=== PATIENT | female | born 1945 | race Caucasian/White ===

== ENCOUNTER 2018-08-04 06:50 | Day surgery (SDC) | payer MEDICARE ==
[~2018-08-04] VITALS: Ht 160 cm; Wt 55.8 kg
[~2018-08-04 06:50] MED LIST: CARVEDILOL12.5 MG PO; CLONAZEPAM1 MG PO; COREG12.5 MG PO; COZAAR25 MG PO; CYCLOBENZAPRINE10 MG PO; CYMBALTA60 MG PO; FUROSEMIDE40 MG PO; HYDROXYZINE HCL25 MG PO; LIDODERM700 MG TD; LIDODERM700 MG TP; LINZESS145 MCG PO; LYRICA75 MG PO; MACROBID 100 M100 MG PO; MILK OF MA400 MG/5 M PO; MIRTAZAPINE15 MG PO; NALOXONE H0.4 MG/11 INJ; NEOMYCIN-POLY-7.5 ML OTIC; NEURONTIN300 MG PO; NEURONTIN600 MG PO; NITROSTAT0.4 MG SL; NORCO 5-325 TA1 EACH PO; NORCO 7.5-3251 EACH PO; OLANZAPINE10 MG PO; PERCOCET 5-3251 EACH PO; PRAVACHOL20 MG PO; PROMETHAZINE HC25 M1 PO; SOMA350 MG PO; SPIRIVA18 MCG INH; SYMBICORT 80-10.2 GM IH; ZOFRAN ODT8 MG PO
--- NOTE | 2018-08-05 06:38 | OR ---
[facility] [address], [place] [address] Signed DATE OF OPERATION: 08/04/2018 SURGEON: Richard Lopez MD PREOPERATIVE DIAGNOSES: 1. Internal and external hemorrhoids. 2. Father with colon cancer in his 50s. 3. Brother with colon cancer in his 60s. 4. Two sisters with colon cancer. 5. Sororal niece with colon cancer at young age. POSTOPERATIVE DIAGNOSES: 1. A 5 mm polyp at 8 cm. 2. Minimal to moderate internal and external hemorrhoids. PROCEDURE PERFORMED: Colonoscopy with hot biopsy. ESTIMATED BLOOD LOSS: None. INDICATIONS: Karli is a 73-year-old female who has a very strong family history of colon cancer as listed above. She is also known to have internal and external hemorrhoids. Her last colonoscopy was in 2007, and was unremarkable except for the hemorrhoids. In the meantime, she is doing well with her bowel movements. However, she is an ASA class 4. She did see her record systems analyst and her bowling alley refinisher prior to the procedure. She had come into the office with her . I have known them for many years. We had a very long discussion regarding the nature of colonoscopy. She understands there is risk including, but not limited to gas, bloating, crampy abdominal pain, bleeding, perforation, requiring surgery, and missed diagnosis. She understands fully that she is at increased risk. Consequently, we did have an anesthesia provider who help us with increased monitoring sedation with propofol. We also had reviewed the bowel prep in detail. She had expressed understanding and maintained her desire to undergo a followup colonoscopy. PROCEDURE NOTE: Karli was taken into our endoscopy suite and placed in the left lateral decubitus position. She was given IV sedation with propofol per our nurse barrel loader and cleaner. A digital rectal exam was performed and this showed some mild to moderate circumferential external Electronically Signed By: RICHARD LOPEZ MD 08/05/18 0638 PATIENT NAME: KARLI PARRA OPERATIVE REPORT DATE OF : 43 REPORT #: [id number] PHYSICIAN: RICHARD LOPEZ MD PCP: WILIAN MARES MD REPORT IS CONFIDENTIAL AND NOT TO BE RELEASED WITHOUT AUTHORIZATION [facility] [address], [place] [address] Signed hemorrhoids. The adult colonoscope was then introduced and advanced under direct visualization of camera without difficulty. Her prep was actually pretty good. There were just a couple of areas of particulate liquid stool. Most of that was irrigated and suctioned out completely. We had taken pictures throughout for photodocumentation. We were able to pass the scope quite gently. We did not need any additional sedation or abdominal compression. The scope was then slowly withdrawn. We saw no pathology throughout the entire colon. Specifically no diverticulosis. Back in the rectum at 8 cm was a small 5 mm polyp at about 8 cm. It was easily removed with the help of hot biopsy forceps. Upon retroflexion of scope, we could see some very minimal to moderate internal hemorrhoid tissue. The gas was then suctioned out and the colonoscope removed. Karli tolerated the procedure quite well. RECOMMENDATIONS: I will see Karli back in my office in 7 to 10 days to review her results. Richard Lopez MD ALB/MODL /[id number] cc: MD Richard Jones, MD Wilian Mares, MD Nayeli Terrell MD Copies: TEENA HAMILTON MD,RICHARD MARES,NAYELI PICKENS MD, MD ~ Electronically Signed By: RICHARD LOPEZ MD 08/05/18 0638 PATIENT NAME: KARLI PARRA OPERATIVE REPORT DATE OF : 43 REPORT #: [id number] PHYSICIAN: RICHARD LOPEZ MD PCP: WILIAN MARSE MD REPORT IS CONFIDENTIAL AND NOT TO BE RELEASED WITHOUT AUTHORIZATION
== END 2018-08-04 10:26 | disposition home or self-care (01) ==
LOC: DS 06:50 → OPS 06:50
PROVIDERS: Colon & Rectal Surgery
PROC: 0DBP8ZZ Excision of Rectum, Via Natural or Artificial Opening Endoscopic (ICD-10-PCS; principal; 2018-08-04 08:30)
DX: Z12.11 Encounter for screening for malignant neoplasm of colon (principal); D12.8 Benign neoplasm of rectum; K64.8 Other hemorrhoids; K64.4 Residual hemorrhoidal skin tags; J44.9 Chronic obstructive pulmonary disease, unspecified; Z80.0 Family history of malignant neoplasm of digestive organs; Z88.5 Allergy status to narcotic agent; Z88.6 Allergy status to analgesic agent; Z88.8 Allergy status to other drugs, medicaments and biological substances; Z83.71 Family history of colonic polyps; Z79.899 Other long term (current) drug therapy
CPT/HCPCS: 88305; J2250; J2704; J3010; J7120

== ENCOUNTER 2019-04-07 17:15 | Emergency (ER) | payer MEDICARE ==
[~2019-04-07] VITALS: Ht 160 cm; Wt 55.8 kg
--- OUTSIDE RECORDS SUMMARY | 2019-04-07 17:18 | XMS ---
PreManage Notification: SUNDAY PARRA Security Scada Engineer Events No recent Security Events currently on file CRITERIA MET - OLIVIA CARE PROVIDERS [facility] 04/12/2015-Current MIKAEL PHONE: Unknown Other Current PHONE: Unknown Jaswinder has no Care Guidelines for this patient. Hollie VISIT COUNT (12 MO.) Michael Ludwig TOTAL 1 NOTE: Visits indicate total known visits. ED/UCC VISIT TRACKING (12 MO.) 04/07/2019 17:[address] [facility] [place] TYPE: Emergency COMPLAINT: - FALL, ARM/BACK PAIN INPATIENT VISIT TRACKING (12 MO.) No inpatient visits to display in this time frame [email or web address]
== END 2019-04-07 19:23 | disposition home or self-care (01) ==
LOC: ED 17:15
DX: M79.601 Pain in right arm (principal)

== ENCOUNTER 2020-05-11 17:06 | Emergency (ER) | payer MEDICARE ==
[~2020-05-11] VITALS: Ht 160 cm; Wt 55.8 kg
--- OUTSIDE RECORDS SUMMARY | 2020-05-11 17:08 | XMS ---
PreManage Notification: SUNDAY PARRA Security Heel Sander Rubber Events No recent Security Events currently on file [facility] PHONE: [phone] Jaswinder has no Care Guidelines for this patient. Hollie VISIT COUNT (12 MO.) [address] [facility] TOTAL 1 NOTE: Visits indicate total known visits. ED/UCC VISIT TRACKING (12 MO.) 05/11/2020 17:06 [facility] [place] TYPE: Emergency COMPLAINT: - CONFUSION INPATIENT VISIT TRACKING (12 MO.) No inpatient visits to display in this time frame [email or web address]
--- NOTE | 2020-05-12 14:35 | EKG ---
[facility] [address] [facility] [place] [address] Signed Atrial-sensed ventricular-paced rhythm Abnormal ECG When compared with ECG of 30-JUL-2018 14:40, Vent. rate has decreased BY 4 BPM Confirmed by MICKY COWAN DO ([id number]) on 05/12/2020 2:34:53 PM Electronically Signed By: MICKY COWAN DO 05/12/20 1435 PATIENT NAME: SUNDAY PARRA Electrocardiogram DATE OF : 43 PHYSICIAN: MICKY COWAN DO REPORT #: [id number] REPORT IS CONFIDENTIAL AND NOT TO BE RELEASED WITHOUT AUTHORIZATION
== END 2020-05-11 19:34 | disposition home or self-care (01) ==
LOC: ED 17:06
DX: J44.0 Chronic obstructive pulmonary disease with (acute) lower respiratory infection (principal); J20.9 Acute bronchitis, unspecified; F17.200 Nicotine dependence, unspecified, uncomplicated; Z88.8 Allergy status to other drugs, medicaments and biological substances; Z88.5 Allergy status to narcotic agent; Z91.048 Other nonmedicinal substance allergy status
CPT/HCPCS: 71045; 80053; 83735; 84484; 85025; 93005; 93010; 99285-25

== ENCOUNTER 2020-08-24 17:09 | Inpatient (IN) | payer MEDICARE ==
[~2020-08-24] VITALS: Ht 160 cm; Wt 46.9 kg
[~2020-08-24 17:09] MED LIST changes: +KLONOPIN0.5 MG PO
--- OUTSIDE RECORDS SUMMARY | 2020-08-24 17:10 | XMS ---
PreManage Notification: SUNDAY PARRA Security Athletics Director Events No recent Security Events currently on file [facility] PHONE: [phone] Jaswinder has no Care Guidelines for this patient. Hollie VISIT COUNT (12 MO.) 2 [facility] TOTAL 2 NOTE: Visits indicate total known visits. ED/UCC VISIT TRACKING (12 MO.) 08/24/2020 17:09 [facility] [place] TYPE: Emergency COMPLAINT: - SOB 05/11/2020 17:06 [facility] [place] TYPE: Emergency COMPLAINT: - CONFUSION DIAGNOSES: - Acute bronchitis, unspecified - Nicotine dependence, unspecified, uncomplicated - Chronic obstructive pulmonary disease, unspecified - Allergy status to narcotic agent - Other nonmedicinal substance allergy status - Allergy status to other drugs, medicaments and biological substances - Chronic obstructive pulmonary disease with (acute) lower respiratory infection - Cough INPATIENT VISIT TRACKING (12 MO.) No inpatient visits to display in this time frame [email or web address]
--- NOTE | 2020-08-25 08:12 | OR ---
[facility] [address], [place] [address] Signed DATE OF OPERATION: 08/24/2020 SURGEON: Richard Lopez MD PREOPERATIVE DIAGNOSIS: Lack of peripheral IV access. POSTOPERATIVE DIAGNOSIS: Lack of peripheral IV access. PROCEDURE: Placement of right femoral triple-lumen catheter. ESTIMATED BLOOD LOSS: None. INDICATIONS: Karli is a 75-year-old female, who is quite emaciated and cachectic. She is being admitted to the Internal Medicine service apparently for congestive heart failure. Apparently, there was some concern that her platelet count was around 35,000, but the repeat was about 125,000. Nevertheless, she has lack of peripheral IV access. She has been in the ER for quite some time without any success in placing peripheral IV. Consequently, I was asked to come the emergency room as a general surgeon on-call to place a central venous catheter for her. Given the fact that she is so thin and emaciated, we decided we would use the right femoral approach and avoid any chance of a pneumothorax. I have known Karli in the past. I reviewed with her the idea of a central venous catheter. She understands there is risk including, but not limited to bleeding, infection, scarring, change in contour of the skin as well as catheter embolization, requiring retrieval. She had expressed understanding and wished to proceed. PROCEDURE NOTE: Karli was kept in the supine position on her ER bed. Her right groin was prepped and draped in the usual sterile fashion. One could easily palpate the femoral pulse. The groin was infiltrated with local anesthetic. The femoral vein was found on the 1st pass of the needle without trouble with return of dark nonpulsatile venous blood. The wire was able to feed without any resistance whatsoever. The track was dilated without any resistance whatsoever. The dilator curved in the appropriate direction. After this, triple-lumen catheter was inserted over the wire up all the way up to the hub. All three ports were able to draw and flush venous blood without difficulty. The catheter Electronically Signed By: RICHARD LOPEZ MD 08/25/20811 PATIENT NAME: KARLI PARRA OPERATIVE REPORT DATE OF : 43 REPORT #: [id number] PHYSICIAN: RICHARD LOPEZ MD PCP: EN BEJARANO MD REPORT IS CONFIDENTIAL AND NOT TO BE RELEASED WITHOUT AUTHORIZATION [facility] [address], [place] [address] Signed was then held in place with interrupted silk sutures. Dry plastic occlusive dressing was applied per nursing staff. Karli tolerated procedure quite well. MD BRUCE Gutierrez/MICHAEL /[id number] cc: Richard Lopez MD Copies: RICHARD LOPEZ MD ~ Electronically Signed By: RICHARD LOPEZ MD 08/25/20811 PATIENT NAME: KARLI PARRA OPERATIVE REPORT DATE OF : 43 REPORT #: [id number] PHYSICIAN: RICHARD LOPEZ MD PCP: EN BEJARANO MD REPORT IS CONFIDENTIAL AND NOT TO BE RELEASED WITHOUT AUTHORIZATION
[2020-08-25] MEDS ORDERED: DULOXETINE HCL30 MG PO (08:20)
[2020-08-25] MEDS ORDERED: OLANZAPINE20 MG PO (08:21)
[2020-08-25] MEDS ORDERED: BUSPIRONE HCL15 MG PO (08:45)
[2020-08-25] MEDS ORDERED: [UNRECOGNIZED DRUG - OTHER] PO (09:37)
[2020-08-25] MEDS ORDERED: BENADRYL25 MG PO (11:43)
--- NOTE | 2020-08-25 14:50 | EKG ---
[facility] [address] [facility] [place], [place] [address] Signed Atrial-sensed ventricular-paced rhythm with prolonged AV conduction Abnormal ECG When compared with ECG of 11-MAY-2020 17:20, No significant change was found Confirmed by MICKY COWAN DO ([id number]) on 08/25/2020 2:49:58 PM Electronically Signed By: MICKY COWAN DO 08/25/20 1450 PATIENT NAME: SUNDAY PARRA Electrocardiogram DATE OF : 43 PHYSICIAN: MICKY COWAN DO REPORT #: [id number] REPORT IS CONFIDENTIAL AND NOT TO BE RELEASED WITHOUT AUTHORIZATION
[2020-08-29] MEDS ORDERED: SPIRIVA RESPIMAT4 GM INH (11:04)
[2020-08-29] MEDS ORDERED: CEFTRIAXONE1 G1 IV (11:04)
[2020-08-29] MEDS ORDERED: TYLENOL325 MG PO (11:05)
[2020-08-29] MEDS ORDERED: ENOXAPARIN40 MG/0.4 SUB-Q (11:05)
[2020-08-29] MEDS ORDERED: SPIRONOLACTONE25 MG PO (11:05)
[2020-08-29] MEDS ORDERED: FUROSEMIDE20 MG PO (11:06)
[2020-08-29] MEDS ORDERED: KLOR-CON 1010 MEQ PO (11:06)
[2020-08-29] MEDS ORDERED: OLANZAPINE10 MG PO (11:06)
--- NOTE | 2020-08-30 07:36 | EKG ---
[facility] [address] [place] [address] Signed Atrial-sensed ventricular-paced rhythm with prolonged AV conduction Abnormal ECG When compared with ECG of 24-AUG-2020 17:27, Vent. rate has increased BY 27 BPM Confirmed by STACY HUNT MD ([id number]) on 08/30/2020 7:36:05 AM Electronically Signed By: STACY HUNT MD 08/30/20 0736 PATIENT NAME: SUNDAY PARRA Electrocardiogram DATE OF : 43 PHYSICIAN: STACY HUNT MD REPORT #: [id number] REPORT IS CONFIDENTIAL AND NOT TO BE RELEASED WITHOUT AUTHORIZATION
== END 2020-08-30 16:30 | disposition short-term general hospital (02) | DRG 280 ==
LOC: ED 17:09 → MS 23:26
PROVIDERS: ADMIT Student in an Organized Health Care Education/Training Program; ATTEND Student in an Organized Health Care Education/Training Program
PROC: 06HM33Z Insertion of Infusion Device into Right Femoral Vein, Percutaneous Approach (ICD-10-PCS; principal; 2020-08-24)
DX: I11.0 Hypertensive heart disease with heart failure (principal); L89.153 Pressure ulcer of sacral region, stage 3; I21.A1 Myocardial infarction type 2; T83.518A Infection and inflammatory reaction due to other urinary catheter, initial encounter; N39.0 Urinary tract infection, site not specified; E43 Unspecified severe protein-calorie malnutrition; N17.9 Acute kidney failure, unspecified; T82.857A Stenosis of other cardiac prosthetic devices, implants and grafts, initial encounter; I50.23 Acute on chronic systolic (congestive) heart failure; Z20.822 Contact with and (suspected) exposure to COVID-19; I25.10 Atherosclerotic heart disease of native coronary artery without angina pectoris; F39 Unspecified mood [affective] disorder; E78.5 Hyperlipidemia, unspecified; J44.9 Chronic obstructive pulmonary disease, unspecified; K58.9 Irritable bowel syndrome, unspecified; E87.5 Hyperkalemia; I27.20 Pulmonary hypertension, unspecified; I08.3 Combined rheumatic disorders of mitral, aortic and tricuspid valves; I37.1 Nonrheumatic pulmonary valve insufficiency; B96.20 Unspecified Escherichia coli [E. coli] as the cause of diseases classified elsewhere; Z66 Do not resuscitate; Z88.8 Allergy status to other drugs, medicaments and biological substances; Z88.5 Allergy status to narcotic agent; Z79.899 Other long term (current) drug therapy; Z79.891 Long term (current) use of opiate analgesic; Z95.0 Presence of cardiac pacemaker; Z95.1 Presence of aortocoronary bypass graft; Z68.20 Body mass index [BMI] 20.0-20.9, adult
CPT/HCPCS: 36415; 51798; 71045; 80048; 80053; 81001; 83735; 83880; 84100; 84484; 85025; 87077; 87088; 87186; 93005; 93010; 93306; 94640; 94760; 97110; 97116; 97162; 97166; 97530; 97535; 99285-25; 99406; C9803; J0696; J1650; J1940; U0003